=== PATIENT | female | born 1965 | race Two or more races ===

== ENCOUNTER → 2024-12-24 | Emergency (ER) | payer OTHER ==
[~2024-12-24] VITALS: Ht 170.2 cm; Wt 89.2 kg
[2024-12-24 17:08] VITALS: BP 112/60; PULSE 100; RESP 19; TEMP 98.3; O2SAT 97
== END | disposition left against medical advice (07) ==
LOC: ER 17:06
DX: M25.512 Pain in left shoulder (principal); Z53.21 Procedure and treatment not carried out due to patient leaving prior to being seen by health care provider